=== PATIENT | male | born 1995 | race Caucasian/White ===

== ENCOUNTER 2024-05-20 12:55 | Outpatient (AMB) | payer OTHER, SELFPAY ==
[2024-05-20 13:05] VITALS: BP 104/66; PULSE 75; RESP 13; O2SAT 99; BMI 26.0
--- NOTE | 2024-05-20 13:05 | MHC.PC.OV ---
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 Patient reports a heat rash when on bilateral legs, buttocks, and groin area. Patient denies itchiness and reports rash appears red and raised. Patient reports right arm has a small rash and he has been around a friend who had staph infection and would like to have it looked at. 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 No PCP in years. Hyperlipidemia-On labs performed at urgent care. Drinks 2-3 drinks 5-6 times per week. Does not feel craving in am, does not feel need to cut back.Endorses mild depressive symptoms. Denies using etoh to cope Rash of buttocks, groin. Ongoing x months. worse in summer. Has athletes foot ROS CONSTITUTIONAL: Denies weight loss, fever and chills. HEENT: Denies changes in vision and hearing. RESPIRATORY: Denies SOB and cough. CV: Denies palpitations and CP GI: Denies abdominal pain, nausea, vomiting and diarrhea. : Denies dysuria and urinary frequency. MSK: Denies new myalgia and joint pain. SKIN: Denies rash and pruritus. NEUROLOGICAL: Denies headache PSYCHIATRIC: Denies recent changes in mood. PHYSICAL EXAM: GENERAL: Alert and oriented x 3. NAD EYES: EOMI. Anicteric. HENT: Moist mucous membranes. No scleral icterus. No cervical lymphadenopathy. LUNGS: Clear to auscultation bilaterally. CARDIOVASCULAR: Regular rate and rhythm. No murmur. No JVD. ABDOMEN: Soft, non-tender +bs EXTREMITIES: No edema. Non-tender. SKIN: Tinea cruris groin. raised erthematous scaly rash buttocks b/l NEUROLOGIC: No focal neurological deficits. CN II-XII grossly intact PSYCHIATRIC: Cooperative. Appropriate mood and affect FOR[facility], [facility] Medical History History of broken collarbone Surgical History No pertinent past surgical history Family History Other Alcoholism Arthritis Mental health disorder Social History Household Members: Friend(s) Housing: House Alcohol intake: current Alcohol intake frequency: a few times a week Alcohol type: beer Patient Tobacco Use Status: Never used Tobacco e-Cigarette/Vaping Use: Currently Using Substance Use Type: Marijuana service: No Current occupational status: employed Current occupation: [employer] Cognitive needs: No Hearing needs: No Vision needs: Yes (WEARS GLASSES, NEEDS EYE CARE ) Questionnaire PHQ-9 Over the last 2 weeks, how often have you been bothered by any of the following problems? 1. Little interest or pleasure in doing things: not at all 2. Feeling down, depressed, or hopeless: not at all 3. Trouble falling or staying asleep, or sleeping too much: not at all 4. Feeling tired or having little energy: not at all 5. Poor appetite or overeating: not at all 6. Feeling bad about yourself - or that you are a failure or have let yourself or your family down: not at all 7. Trouble concentrating on things, such as reading the newspaper or watching television: not at all 8. Moving or speaking so slowly that other people could have noticed. Or the opposite - being so fidgety or restless that you have been moving around a lot more than usual: not at all 9. Thoughts that you would be better off or of hurting yourself in some way: not at all Total score: 0 Depression Screening Interpretation: Negative (NEG) Depression Screening Done: Yes 13347 - PHQ-9 Billing: Yes Source: Developed by Drs. Jaswinder Dean, Laine Becker, Preet Dempsey and colleagues, with an educational priyank from [employer]. Thrive Questionnaire Date Thrive assessed: 05/20/24 I am a: Patient What is your living situation today?: I have a steady place to live Within the past 12 months, did the food you bought not last and you didn't have the money to get more?: Never true Within the past 12 months, did you worry whether your food would run out before you got money to buy more?: Never true Do you have trouble paying for medicines?: No Do you have trouble getting transportation to medical appointments?: No Do you have trouble paying your heating and electricity bill?: No Do you have trouble taking care of your child, family member or friend?: No Do you have trouble with day-to-day activities such as bathing, preparing meals, shopping, managing finances, etc.?: No Are you currently unemployed and looking for a job?: No Are you interested in more education?: No Please select the resources that you would like help with: None Currently or been in a relationship where the following occur: No concerns reported THRIVE Score: 0 AUDIT C Alcohol Use Questionnaire (AUDIT-C) 1. How often do you have a drink containing alcohol?: 2-3 times a week 2. How many drinks containing alcohol do you have on a typical day when you are drinking?: 1 or 2 3. How often do you have six or more drinks on one occasion?: Never Total Score: 3 MANOJ-7 AMB Questionnaire MANOJ-7 Date MANOJ - 7 assessed: 05/20/24 Feeling nervous, anxious, or on edge: 0 = Not at all Not being able to stop or control worryin = Not at all Worrying too much about different things: 0 = Not at all Trouble relaxin = Not at all Being so restless that it is hard to sit still: 0 = Not at all Becoming easily annoyed or irritable: 0 = Not at all Feeling afraid as if something awful might happen: 0 = Not at all Total MANOJ-7 score (0-4 normal; 5-9 mild; 10-14 moderate; 15-21 severe): 0 Source: Developed by Drs. Jaswinder Dean, Laine Becker, Preet Dempsey and colleagues, with an educational priyank from [employer]. MANOJ-7 Assessment Billing MANOJ-7 Assessment Tool: MANOJ-7 Assessment 15136 Physical exam (Primary Care) Vital Signs: Last Vital Signs Pulse 75 05/20/24 13:05 Resp 13 05/20/24 13:05 BP 104/66 05/20/24 13:05 Pulse Ox 99 05/20/24 13:05 Oxygen Delivery Method Room Air 05/20/24 13:05 BMI result Body Mass Index 26.0 Tobacco/Smoking Status: Tobacco use Status Tobacco use date assessed 05/20/24 05/20/24 13:15 Patient Tobacco Use Status Never used Tobacco 05/20/24 13:15 e-Cigarette/Vaping Use Currently Using 05/20/24 13:15 PHQ-9: PHQ-9 Score PHQ-9: Total score 0 05/20/24 14:50 Depression Screening Interpretation: Negative (NEG) Thrive Assessment: Date of Thrive Assessment Date Thrive assessed 05/20/24 05/20/24 13:15 Currently or been in a relationship where the following occur: No concerns reported Assessment and Plan Assessment & Plan (1) Hyperlipidemia: Code(s): E78.5 - Hyperlipidemia, unspecified Qualifiers: Hyperlipidemia type: mixed hyperlipidemia Qualified Code(s): E78.2 - Mixed hyperlipidemia (2) Screening for metabolic disorder: Code(s): Z13.228 - Encounter for screening for other metabolic disorders (3) Fatigue: Code(s): R53.83 - Other fatigue Qualifiers: Fatigue type: unspecified Qualified Code(s): R53.83 - Other fatigue Plan: Labs ordered (4) Rash: Code(s): R21 - Rash and other nonspecific skin eruption Plan: Lotrisone x 2 weeks. If stops drinking can use oral lamisil x one week if LFTs normal Orders: Orders Comprehensive Met. Panel 05/20/24 B35.6 - Tinea cruris, E78.5 - Hyperlipidemia, unspecified, R21 - Rash and other nonspecific skin eruption, R53.83 - Other fatigue, Z11.3 - Encounter for screening for infections with a predominantly sexual mode of transmission, Z13.228 - Encounter for screening for other metabolic disorders TSH reflex Free T4 05/20/24 B35.6 - Tinea cruris, E78.5 - Hyperlipidemia, unspecified, R21 - Rash and other nonspecific skin eruption, R53.83 - Other fatigue, Z11.3 - Encounter for screening for infections with a predominantly sexual mode of transmission, Z13.228 - Encounter for screening for other metabolic disorders Hepatitis C Antibody 05/20/24 B35.6 - Tinea cruris, E78.5 - Hyperlipidemia, unspecified, R21 - Rash and other nonspecific skin eruption, R53.83 - Other fatigue, Z11.3 - Encounter for screening for infections with a predominantly sexual mode of transmission, Z13.228 - Encounter for screening for other metabolic disorders Complete Blood Count Auto Diff 05/20/24 B35.6 - Tinea cruris, E78.5 - Hyperlipidemia, unspecified, R21 - Rash and other nonspecific skin eruption, R53.83 - Other fatigue, Z11.3 - Encounter for screening for infections with a predominantly sexual mode of transmission, Z13.228 - Encounter for screening for other metabolic disorders Lipid Panel 05/20/24 B35.6 - Tinea cruris, E78.5 - Hyperlipidemia, unspecified, R21 - Rash and other nonspecific skin eruption, R53.83 - Other fatigue, Z11.3 - Encounter for screening for infections with a predominantly sexual mode of transmission, Z13.228 - Encounter for screening for other metabolic disorders Hemoglobin A1c 05/20/24 B35.6 - Tinea cruris, E78.5 - Hyperlipidemia, unspecified, R21 - Rash and other nonspecific skin eruption, R53.83 - Other fatigue, Z11.3 - Encounter for screening for infections with a predominantly sexual mode of transmission, Z13.228 - Encounter for screening for other metabolic disorders Hepatitis B Surface Antigen 05/20/24 B35.6 - Tinea cruris, E78.5 - Hyperlipidemia, unspecified, R21 - Rash and other nonspecific skin eruption, R53.83 - Other fatigue, Z11.3 - Encounter for screening for infections with a predominantly sexual mode of transmission, Z13.228 - Encounter for screening for other metabolic disorders CT NG by PCR 05/20/24 B35.6 - Tinea cruris, E78.5 - Hyperlipidemia, unspecified, R21 - Rash and other nonspecific skin eruption, R53.83 - Other fatigue, Z11.3 - Encounter for screening for infections with a predominantly sexual mode of transmission, Z13.228 - Encounter for screening for other metabolic disorders HIV Ab/Ag 05/20/24 B35.6 - Tinea cruris, E78.5 - Hyperlipidemia, unspecified, R21 - Rash and other nonspecific skin eruption, R53.83 - Other fatigue, Z11.3 - Encounter for screening for infections with a predominantly sexual mode of transmission, Z13.228 - Encounter for screening for other metabolic disorders Medications: New clotrimazole-betamethasone 1-0.05 % 1 appl topical BID 45 grams 0RF 4 weeks terbinafine HCl 250 mg PO DAILY 7 tabs 0RF 7 days Coding Level of Care Code New Pt Level 4 (14126) Diagnoses Mixed hyperlipidemia E78.2 Hyperlipidemia type: mixed hyperlipidemia Screening for metabolic disorder Z13.228 Fatigue, unspecified type R53.83 Fatigue type: unspecified Rash R21 Additional Codes MANOJ-7 Assessment Billing - MANOJ-7 Assessment Tool: MANOJ-7 Assessment 58074 ([id number])
== END 2024-05-20 14:02 | disposition home or self-care (01) ==
PROVIDERS: PCP Internal Medicine; Visit Provider Internal Medicine
DX: E78.2 Mixed hyperlipidemia (principal); Z13.228 Encounter for screening for other metabolic disorders; R53.83 Other fatigue; R21 Rash and other nonspecific skin eruption
CPT/HCPCS: 99204

== ENCOUNTER 2024-05-20 14:04 | Outpatient (REF) | payer OTHER, SELFPAY ==
[2024-05-20 17:21] LABS: MANUAL DIFF FLAG NO
[2024-05-20 17:40] LABS: Basophils Percent Auto 0.3 % (0-2); Eosinophils Absolute Auto 0.1 X10*3/uL (0.0-0.4); Eosinophils Percent Auto 1.8 % (0-4); Hematocrit 47.5 % (42.0-52.0); Hemoglobin 17.8 g/dl (14.0-18.0); Imm Gran Abs Auto 0.02 X10*3/uL (0.00-0.03); Imm Gran Pct Auto 0.3 % (0.0-0.4); Lymphocytes Absolute Auto 1.6 X10*3/uL (1.2-4.9); Lymphocytes Percent Auto 26.1 % (20-40); Mean Corpuscular HGB Conc 37.5 g/dl (31.0-36.0); Mean Corpuscular Hemoglobin 34.3 pg (27.0-33.0); Mean Corpuscular Volume 91.5 fL (80.0-98.0); Mean Platelet Volume 12.3 fL (9.4-12.4); Monocytes Absolute Auto 0.6 X10*3/uL (0.1-1.2); Monocytes Percent Auto 9.3 % (2-11); Neutrophils Absolute Auto 3.8 x10*3/uL (2.0-8.3); Neutrophils Percent Auto 62.2 % (45-73); Platelet Count 140 X10*3/uL (160-400); Red Blood Count 5.19 X10*6/uL (4.60-5.80); Red Cell Distribution Width 12.3 % (11.0-16.0); White Blood Count 6.1 X10*3/uL (4.8-10.8)
[2024-05-20 17:46] LABS: Estimated Average Glucose 85 mg/dL; Hemoglobin A1c % 4.6 % (<6.0)
[2024-05-20 17:55] LABS: Alanine Aminotransferase 33 U/L (0-40); Albumin Level 4.5 g/dL (3.5-5.0); Alkaline Phosphatase 69 U/L (39-117); Anion Gap 12 (12-20); Aspartate Amino Transferase 31 U/L (5-37); Bilirubin Total 0.9 mg/dL (0.0-1.0); Blood Urea Nitrogen 13 mg/dL (9-16); Calcium 9.5 mg/dL (8.4-10.2); Carbon Dioxide 29 mmol/L (22-29); Chloride 101 mmol/L (96-108); Cholesterol 311 mg/dL (<200); Estimated Glomerular Filt Rate > 60; Glucose Random 86 mg/dL (60-115); HDL Cholesterol 56 mg/dL (>40); LDL Cholesterol Calculated 233 mg/dL (<100); Potassium 3.7 mmol/L (3.3-5.1); Sodium 138 mmol/L (135-145); Total Protein 7.2 g/dL (6.5-8.0); Triglycerides 111 mg/dL (<150)
[2024-05-20 18:10] LABS: TSH reflex Free T4 1.41 uIU/mL (0.32-4.0)
[2024-05-21 04:27] LABS: HBsAGNum1 0.46 S/CO (0.00-0.99); HIV AB/AG Nonreactive (Nonreactive); HIV Num 1 0.05 S/CO (0.00-0.99); Hepatitis B Surface Antigen Negative (Negative); ~HepC Num1 0.06 S/CO (0.00-0.79); ~Hepatitis C Antibody Nonreactive (Nonreactive)
== END 2024-05-20 14:05 | disposition home or self-care (01) ==
LOC: HO.WFDLDS 14:04
PROVIDERS: Visit Provider Internal Medicine
DX: E78.5 Hyperlipidemia, unspecified (principal); Z11.3 Encounter for screening for infections with a predominantly sexual mode of transmission; Z13.228 Encounter for screening for other metabolic disorders; R53.83 Other fatigue; R21 Rash and other nonspecific skin eruption; B35.6 Tinea cruris; Z13.1 Encounter for screening for diabetes mellitus
CPT/HCPCS: 36415; 80053; 80061; 83036; 84443; 85025; 86803; 87340; 87389

== ENCOUNTER 2024-07-04 09:44 | Outpatient (AMB) | payer OTHER, SELFPAY ==
--- NOTE | 2024-07-04 10:52 | MHC.PC.OV ---
Intake Visit Reasons: lab results Allergies No Known Allergies [No Known Allergies*] Allergy (Verified 05/20/24 13:10) Tobacco use date assessed: 05/20/24 Dental Screening Dental Screen Date: 05/20/24 HPI HPI Comments History of Present Illness Details This is a 28 year old male with a past medical history of hyperlipidemia presenting for follow up. Established care a few weeks ago. Labs drawn at that time with significantly elevated LDL Hyperlipidemia-Recent LDL 233. Was elevated previously on labs performed at urgent care. Drinks 2-3 drinks 5-6 times per week. Does not feel craving in am, does not feel need to cut back.Endorses mild depressive symptoms. Denies using etoh to cope Rash of buttocks, groin. Ongoing x months. worse in summer. Has athletes foot-continues lamisil ROS see hpi [facility] Medical History History of broken collarbone Surgical History No pertinent past surgical history Family History Other Alcoholism Arthritis Mental health disorder Social History Household Members: Friend(s) Housing: House 75 years or older and lives alone: No Alcohol intake: current Alcohol intake frequency: a few times a week Alcohol type: beer Patient Tobacco Use Status: Never used Tobacco e-Cigarette/Vaping Use: Currently Using Substance Use Type: Marijuana service: No Current occupational status: employed Current occupation: [employer] Cognitive needs: No Hearing needs: No Vision needs: Yes (WEARS GLASSES, NEEDS EYE CARE ) Questionnaire Thrive Questionnaire Date Thrive assessed: 05/20/24 MANOJ-7 AMB Questionnaire MANOJ-7 Date MANOJ - 7 assessed: 05/20/24 Source: Developed by Drs. Jaswinder Dean, Laine Becker, Preet Dempsey and colleagues, with an educational priyank from [employer]. Physical exam (Primary Care) Tobacco/Smoking Status: Tobacco use Status Tobacco use date assessed 05/20/24 07/04/24 10:52 Patient Tobacco Use Status Never used Tobacco 07/04/24 10:52 e-Cigarette/Vaping Use Currently Using 07/04/24 10:52 Thrive Assessment: Date of Thrive Assessment Date Thrive assessed 05/20/24 07/04/24 10:52 Telehealth Telehealth Telehealth Platform: Telephone Location of provider rendering services: practice address Location of patient: address on file Patient Identification confirmed using: Name, : Yes Telehealth method: voice only Patient verbally consented to treatment: Yes Patient verbally consented to billing insurance company: Yes Patient informed of any privacy concerns related to visit: Yes Minutes spent on Phone/Video with Pt.: 15 Assessment and Plan Assessment & Plan (1) Hyperlipidemia: Code(s): E78.5 - Hyperlipidemia, unspecified Qualifiers: Hyperlipidemia type: mixed hyperlipidemia Qualified Code(s): E78.2 - Mixed hyperlipidemia Plan: Discussed lipid results Discussed lifestyle modification versus statin therapy Coding Level of Care Code Tele Est Pt Level 2 (86753) Diagnoses Mixed hyperlipidemia E78.2 Hyperlipidemia type: mixed hyperlipidemia
== END 2024-07-04 11:08 | disposition home or self-care (01) ==
LOC: HO.HMGFM 09:44
PROVIDERS: PCP Internal Medicine; Visit Provider Internal Medicine
DX: E78.2 Mixed hyperlipidemia (principal)
CPT/HCPCS: 99212

== ENCOUNTER 2025-06-08 15:55 | Outpatient (AMB) | payer OTHER, SELFPAY ==
--- OUTSIDE RECORDS SUMMARY | 2025-06-08 15:58 | XMS_ITS | Clinical Summary ---
Author Organization [facility] Address [address] [address] Phone Care Team Providers Care Corporate Associate Name Role Phone Rosario Garcia MD Primary Care Provider [phone] Allergies No known active allergies Medications terbinafine HCL (LAMISIL) 250 mg tablet Take 1 tablet by mouth every morning. 05/20/2024 Active Active Problems No known active problems Immunizations Immunization Administration Dates Next Due DTP 03/31/1995,03/31/1994,01/01/1994 ,1993 Tdap 07/14/2024,12/14/2017,07/24/2007 Family History Relation Status Comments Father Mother Alive Social History Tobacco Use Types Packs/Day Years Used Date Smoking Tobacco: Every Day Smokeless Tobacco: Never Comments:cigar every day or everyother Alcohol Use Standard Drinks/Week Comments Yes 0 (1 standard drink = 0.6 oz pur e alcohol) more than 7 weekly Education Answer Date Recorded Are you interested in more education? Not on sunil e 03/02/2023 Are you concerned about learning? Not on file 03/02/2023 No 03/02/2023 No 03/02/2023 Digital Access Answer Date Recorded No 03/31/2023 No 03/31/2023 Reliable internet access at home? Not on file 03/31/2023 Device with a working camera? Not on file Sex and Gender Information Value Date Recorded Sex Assigned at Not on file Legal Sex Male 3:18 PM EST Gender Identity Not on file Sexual Orientation Not on file Last Filed Vital Signs Vital Sign Reading Time Taken Comments Blood Pressure 114/76 07/24/2024 9:16 AM EDT Pulse 62 07/24/2024 9:16 AM EDT Temperature 36.6 C (97.9 F) 07/24/2024 9:16 AM EDT Respiratory Rate 16 07/24/2024 9:16 AM EDT Oxygen Saturation 97% 07/24/2024 9:16 AM EDT Inhaled Oxygen Concentration - - Weight 75.8 kg (167 lb) 11/25/2020 3:43 PM EST w donell pierre Height 175.3 cm (5' 9 ) 11/25/2020 3:43 PM EST w donell pierre Body Mass Index 24.66 11/25/2020 3:43 PM EST Plan of Treatment Upcoming Encounters Date Type Department Care Team (Late st Contact Info) Description 02/09/2026 2:00 PM EDT Office Visit [facility], Department of Neurology [address] [place] [address] Dee Franklin PA-C [address] [facility] [address]st [place] [address] [email or web address] Health Maintenance Due Date Last Done Comments DEPRESSION SCREENING 2005 SMOKING Hx and SMOKELESS TOBACCO SCREENING 2006 HEPATITIS C SCREENING 2011 HIV ONE-TIME SCREENING (18-6 5 YEARS) 2011 PNEUMOCOCCAL VACCINES (0-49 years) (1 of 2 - PCV) 2012 COVID-19 VACCINE (2023-2 5 season) 2024 Adult Td,Tdap Booster 07/14/2034 07/14/2024 , 12/14/2017, 07/24/2007 HEPATITIS A VACCINES Aged Out No long er eligible based on patient's age to complete this topic HIB VACCINES Aged Out No longer eligi ble based on patient's age to complete this topic MENINGOCOCCAL VACCINES (ACWY) Aged Out No longer eligible based on patient's age to complete this topic MENINGOCOCCAL VACCINES (B) Aged Out N o longer eligible based on patient's age to complete this topic Medical Devices Not on file Insurance [facility] POS [facility] POS [facility] POS [facility] POS Care Teams Corporate Associate Relationship Specialty Start Date End Date Rosario Garcia MD PCP - General Internal Medicine 05/20/25 Additional Source Comments The information contained in this document represents components of the legal health record. It is not the complete legal health record.[facility]
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
[2025-06-08 16:27] VITALS: BP 96/62; PULSE 88; RESP 12; TEMP 37; O2SAT 99; BMI 24.2
== END 2025-06-08 16:46 | disposition home or self-care (01) ==
LOC: HO.HMCFM 15:56
PROVIDERS: PCP Internal Medicine; Visit Provider Internal Medicine
DX: S42.101S Fracture of unspecified part of scapula, right shoulder, sequela (principal); V89.2XXS Person injured in unspecified motor-vehicle accident, traffic, sequela

== ENCOUNTER → 2025-06-08 15:55 | Outpatient (BNVA) | payer OTHER, SELFPAY | PROVIDERS: PCP Internal Medicine; Visit Provider Internal Medicine | DX: Z13.31 Encounter for screening for depression (principal); Z13.30 Encounter for screening examination for mental health and behavioral disorders, unspecified; S42.101S Fracture of unspecified part of scapula, right shoulder, sequela; V89.2XXS Person injured in unspecified motor-vehicle accident, traffic, sequela | CPT/HCPCS: 96127 ==

== ENCOUNTER 2025-08-04 11:33 | Outpatient (AMB) | payer OTHER, SELFPAY ==
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
[2025-08-04 11:39] VITALS: BP 100/78; PULSE 75; RESP 14; TEMP 36.7; O2SAT 98; BMI 24.4
--- OUTSIDE RECORDS SUMMARY | 2025-08-04 13:04 | XMS_ITS | Clinical Summary ---
Author Organization [facility] Address [address] [place] [id number] Phone Care Team Providers Care Metallurgy Teacher Name Role Phone Rosario Garcia MD Primary Care Provider [phone] Allergies No known active allergies Medications terbinafine [...] Description 02/09/2026 2:00 PM EDT Office Visit [facility], Department of Neurology [address] [place] [address] Dee Franklin PA-C [address] [facility] 1st [place] [address] [email or web address] Due Date Last Done Comments DEPRESSION SCREENING 2005 SMOKING Hx and SMOKELESS TOBACCO SCREENING 2006 HEPATITIS C SCREENING 2011 HIV ONE-TIME SCREENING (18-6 5 YEARS) 2011 PNEUMOCOCCAL VACCINES (0-49 years) (1 of 2 - PCV) 2012 INFLUENZA VACCINE (#1) 2025 COVID-19 VACCINE ( - 2023-2 5 season) 2025 Adult Td,Tdap Booster 07/14/2034 07/14/2024 , 12/14/2017, [...] topic Medical Devices Not on file Insurance [facility] POS [facility] POS [facility] POS Care Teams Metallurgy Teacher Relationship Specialty Start Date End Date Rosario Garcia MD PCP - General Internal Medicine 05/20/25 Additional Source Comments The information contained in this document represents components of the legal health record. It is not the complete legal health record.[facility]
== END 2025-08-04 12:17 | disposition home or self-care (01) ==
LOC: HO.HMCFM 11:34
PROVIDERS: PCP Internal Medicine; Visit Provider Internal Medicine
DX: Z00.00 Encounter for general adult medical examination without abnormal findings (principal); E78.2 Mixed hyperlipidemia; S42.101S Fracture of unspecified part of scapula, right shoulder, sequela

== ENCOUNTER 2025-08-04 11:33 | Outpatient (REF) | payer OTHER, SELFPAY ==
[2025-08-04 16:30] LABS: MANUAL DIFF FLAG NO
[2025-08-04 16:39] LABS: Hematocrit 42.5 % (42.0-52.0); Hemoglobin 15.6 g/dl (14.0-18.0); Imm Gran Abs Auto 0.01 X10*3/uL (0.00-0.03); Imm Gran Pct Auto 0.2 % (0.0-0.4); Lymphocytes Absolute Auto 1.7 X10*3/uL (1.2-4.9); Mean Corpuscular HGB Conc 36.7 g/dl (31.0-36.0); Mean Corpuscular Hemoglobin 32.2 pg (27.0-33.0); Mean Corpuscular Volume 87.6 fL (80.0-98.0); NRBC Abs Auto 0.000 X10*3/uL (0.0-0.012); NRBC Pct Auto 0.0 /100WBC (0.0-0.2); Platelet Count 162 X10*3/uL (160-400); Red Blood Count 4.85 X10*6/uL (4.60-5.80); White Blood Count 5.4 X10*3/uL (4.8-10.8)
[2025-08-04 17:08] LABS: Alanine Aminotransferase 32 U/L (0-40); Albumin Level 4.5 g/dL (3.5-5.0); Alkaline Phosphatase 103 U/L (39-117); Anion Gap 11 (12-20); Aspartate Amino Transferase 25 U/L (5-37); Blood Urea Nitrogen 11 mg/dL (9-16); Calcium 9.3 mg/dL (8.4-10.2); Carbon Dioxide 30 mmol/L (22-29); Chloride 105 mmol/L (96-108); Cholesterol 387 mg/dL (<200); Estimated Glomerular Filt Rate > 60; HDL Cholesterol 41 mg/dL (>40); Potassium 3.7 mmol/L (3.3-5.1); Sodium 142 mmol/L (135-145); Total Protein 7.2 g/dL (6.5-8.0); Triglycerides 125 mg/dL (<150)
== END 2025-08-04 11:34 | disposition home or self-care (01) ==
LOC: HO.HMGCLDS 11:33
PROVIDERS: PCP Internal Medicine; Visit Provider Internal Medicine
DX: Z00.00 Encounter for general adult medical examination without abnormal findings (principal); Z13.228 Encounter for screening for other metabolic disorders; Z13.0 Encounter for screening for diseases of the blood and blood-forming organs and certain disorders involving the immune mechanism; S42.101D Fracture of unspecified part of scapula, right shoulder, subsequent encounter for fracture with routine healing; E78.2 Mixed hyperlipidemia; R53.83 Other fatigue
CPT/HCPCS: 36415; 80053; 80061; 84443; 85025

== ENCOUNTER 2025-09-22 12:49 | Outpatient (REF) | payer OTHER, SELFPAY ==
--- OUTSIDE RECORDS SUMMARY | 2025-09-17 23:59 | XMS_ITS | Continuity of Care Document ---
Author Organization [facility] Address [address] [place] [address]- Care Team Providers Care Flour Blender Helper Name Role Phone Li MOJICA, Rosario Golden Primary Care Physician Encounter [facility] NBR [id number] Date(s): 07/28/25 - 09/17/25 [facility] [address], [place] [address] Attending Physician: Yenifer Aguillon MD Encounter Type: Pre-OutPatient One Time Allergies, Adverse Reactions, Alerts No Known Allergies Medications docusate sodium 100 mg oral capsule 1 capsule = 100 mg, By Mouth, 2 times a day, # 60 capsule, 0 Refills, Maintenance, 05/12/25 11:49:00 AM EDT, Capsule, [facility], Partial fill upon patient request if the prescription is for a schedule II opioid drug., 173, cm, 05/08/25 20:10:00 EDT, Height, 73.3, kg, 05/08/25 20:10:00 EDT, Dry Weight Start Date: 05/12/25 Status: Ordered Medication Dispense Status: Completed Quantity: 60.0 Unit: capsule Total Allowed Fills: 1 Fills Dispensed: 0 Lyrica 50 mg oral capsule 1 capsule = 50 mg, By Mouth, 2 times a day, # 180 capsule, 1 Refills, Maintenance, 06/10/25 11:36:00 AM EDT, Capsule, [facility]/pharmacy #[id number], Partial fill upon patient request if the prescription is for a schedule II opioid drug., 172, cm, 06/04/25 18:45:00 EDT, Height, 71.5, kg, 06/04/25 18:45:00 EDT, Dry Weight Start Date: 06/10/25 Stop Date: 06/20/25 Status: Ordered Medication Dispense Status: Completed Quantity: 180.0 Unit: capsule Total Allowed Fills: 2 Fills Dispensed: 0 Lyrica 50 mg oral capsule 1 capsule = 50 mg, By Mouth, 2 times a day, # 20 capsule, 0 Refills, Maintenance, 05/12/25 11:50:00 AM EDT, Capsule, [facility], Partial fill upon patient request if the prescription is for a schedule II opioid drug., 173, cm, 05/08/25 20:10:00 EDT, Height, 73.3, kg, 05/08/25 20:10:00 EDT, Dry Weight Start Date: 05/12/25 Stop Date: 05/22/25 Status: Ordered Medication Dispense Status: Completed Quantity: 20.0 Unit: capsule Total Allowed Fills: 1 Fills Dispensed: 0 Social History Social History Type Response Smoking Status Never (less than 100 in lifetime) entered on: 08/17/25 Sex Sex Representation Male (finding) Patient Care team information Care Team Personnel Name: Cheryl Neely RN Position: S RN Member Role: Primary Care Nurse Name: Thony Smith LPN Position: S RN Member Role: Primary Care Nurse Name: Sandra Best RN Position: S RN Member Role: Primary Care Nurse Name: Virginia Fournier RN Position: S RN Member Role: Primary Care Nurse Name: Rosario Jefferson MD Position: Reference Physician Member Role: PCP Address: [address] [place] [address] Telecom: Name: Torri Sandoval RN Position: S RN Member Role: Primary Care Nurse Name: Erika Gamez RN Position: S RN Member Role: Primary Care Nurse Name: Josefina Melton RN Position: S RN Member Role: Primary Care Nurse Care Team Related Persons Name: CARLOS ALBERTO ARNOLD Name: MATT KRAUSE Insurance Providers Guarantor name: HARISH Health Plan Information #: 1 Payer: [place] [employer] Payer Identifier: HARISH Member Number: [id number] Group Number: [id number] Subscriber Identifier: [id number] Relationship to Subscriber: self Coverage Type: Managed Care (Private) Coverage Verification Date: NA Telecom: NA Address: NA
--- OUTSIDE RECORDS SUMMARY | 2025-09-17 23:59 | XMS_ITS | Continuity of Care Document ---
Author Organization [facility] [place] Address [address] [place] [address]- Care Team Providers Care Pharmacologist Name Role Phone Li MOJICA, Rosario Golden Primary Care Physician [phone] [facility] [id number] Date(s): 08/18/25 - 09/17/25 [facility] [address] [id number] Attending Physician: Isreal Yancey Admitting Physician: Isreal Yancey Referring Physician: Isreal Yancey Encounter Type: Triage Allergies, Adverse Reactions, Alerts No Known Allergies Medications docusate sodium 100 mg oral capsule 1 capsule = 100 mg, By Mouth, 2 times a day, # 60 capsule, 0 Refills, Maintenance, 05/12/25 11:49:00 AM EDT, Capsule, [facility], Partial fill upon patient request [...] Refills, Maintenance, 06/10/25 11:36:00 AM EDT, Capsule, [facility]/pharmacy #[id number], Partial fill upon patient request if [...] Refills, Maintenance, 05/12/25 11:50:00 AM EDT, Capsule, [facility], Partial fill upon patient request if [...] Position: Reference Physician Member Role: PCP Address: [address] [place] [id number] Telecom: Name: Torri Sandoval RN Position: S RN Member Role: Primary Care Nurse Name: Erika Gamez RN Position: S RN Member Role: Primary Care Nurse Name: Josefina Melton RN Position: S RN Member Role: Primary Care Nurse Care Team Related Persons Name: CARLOS ALBERTO ARNOLD Name: MATT KRAUSE Insurance Providers Guarantor name: HARISH Health Plan Information #: 1 Payer: [place] [employer] Payer Identifier: NA Member Number: [id number] Group Number: [id number] Subscriber Identifier: NA Relationship to Subscriber: self Coverage Type: Managed Care (Private) Coverage Verification Date: NA Telecom: NA Address: NA
--- NOTE | ~2025-09-22 | US_ITS ---
CLINICAL HISTORY: R59.9 - Enlarged lymph nodes, right supraclavicular area --- Additional Notes or Special Instructions: supraclavicular node. history of right shoulder fracture Ultrasound right upper chest wall Comparison: None provided Findings: No significant sonographic abnormalities identified. Subcentimeter nodes incidentally noted. Benign fatty maureen are preserved. Impression: No significant abnormality This document has been electronically signed by: Marlo Salas MD on 09/22/2025 19:28:25
== END 2025-09-22 12:50 | disposition home or self-care (01) ==
LOC: HO.HMGCX 12:49
PROVIDERS: PCP Internal Medicine; Visit Provider Internal Medicine
DX: R59.9 Enlarged lymph nodes, unspecified (principal)
CPT/HCPCS: 76536

== ENCOUNTER → 2025-09-22 12:55 | Outpatient (BNV) | payer OTHER, SELFPAY | PROVIDERS: PCP Internal Medicine; Visit Provider Radiology Diagnostic Radiology | DX: R59.9 Enlarged lymph nodes, unspecified (principal) | CPT/HCPCS: 76536 ==

== ENCOUNTER 2025-09-28 14:55 | Outpatient (AMB) | payer OTHER, SELFPAY ==
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
[2025-09-28 15:14] VITALS: BP 124/74; PULSE 92; RESP 12; O2SAT 99; BMI 32.0
== END 2025-09-28 16:59 | disposition home or self-care (01) ==
LOC: HO.HMCFM 14:56
PROVIDERS: PCP Internal Medicine; Visit Provider Internal Medicine
DX: S42.101S Fracture of unspecified part of scapula, right shoulder, sequela (principal); G54.0 Brachial plexus disorders